=== PATIENT | male | born 1990 | race Two or more races ===

== ENCOUNTER 2016-07-12 18:47 | Emergency (ER) | payer MEDICAID, OTHER ==
[~2016-07-12] VITALS: Ht 170.2 cm; Wt 72.6 kg
[2016-07-12 19:15] VITALS: BP 142/68
== END 2016-07-12 22:09 | disposition home or self-care (01) ==
LOC: ER 18:56
DX: S93.401A Sprain of unspecified ligament of right ankle, initial encounter (principal); L03.115 Cellulitis of right lower limb; S90.31XA Contusion of right foot, initial encounter; W20.8XXA Other cause of strike by thrown, projected or falling object, initial encounter; Y93.89 Activity, other specified; Y99.8 Other external cause status; Y92.89 Other specified places as the place of occurrence of the external cause
CPT/HCPCS: 73610; 73630; 99284; L3260

== ENCOUNTER 2024-06-12 09:51 | Emergency (ER) | payer MEDICAID, OTHER ==
[~2024-06-12] VITALS: Ht 170.2 cm; Wt 75.0 kg
[2024-06-12 10:22] VITALS: BP 123/73; PULSE 98; RESP 15; TEMP 98.3; O2SAT 98
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
== END 2024-06-12 11:16 | disposition home or self-care (01) ==
LOC: ER 09:51 → EDBD 09:51 → ER 11:16
DX: S02.2XXA Fracture of nasal bones, initial encounter for closed fracture (principal); S00.81XA Abrasion of other part of head, initial encounter; X58.XXXA Exposure to other specified factors, initial encounter; Y93.89 Activity, other specified; Y92.89 Other specified places as the place of occurrence of the external cause; Y99.8 Other external cause status
CPT/HCPCS: 70160